=== PATIENT | male | born 1970 | race Two or more races ===

== ENCOUNTER → 2017-08-09 | Emergency (ER) | payer OTHER ==
[~2017-08-09] VITALS: Ht 182.9 cm; Wt 98.0 kg
[~2017-08-09] MED LIST: ATENOLOL25 MG; NORVASC5 MG
== END | disposition home or self-care (01) ==
LOC: ER 00:26
DX: K52.89 Other specified noninfective gastroenteritis and colitis (principal); T62.8X1A Toxic effect of other specified noxious substances eaten as food, accidental (unintentional), initial encounter; Y92.511 Restaurant or cafe as the place of occurrence of the external cause; E86.0 Dehydration

== ENCOUNTER → 2022-07-27 09:34 | Outpatient (CLI) | payer OTHER | END | disposition home or self-care (01) | LOC: LAB 09:34 | PROVIDERS: ATTEND Obstetrics & Gynecology | DX: Z20.828 Contact with and (suspected) exposure to other viral communicable diseases (principal); Z20.818 Contact with and (suspected) exposure to other bacterial communicable diseases ==